=== PATIENT | male | born 1990 | race Caucasian/White ===

== ENCOUNTER 2022-01-09 13:56 | Emergency (ER) | payer SELFPAY ==
[~2022-01-09] VITALS: Ht 198.1 cm; Wt 97.7 kg
[2022-01-09 14:07] VITALS: BP 149/78; TEMP 98
[2022-01-09 15:16] VITALS: PULSE 90
== END 2022-01-09 15:16 | disposition home or self-care (01) ==
LOC: COL.ER 13:56
DX: S06.0X0A Concussion without loss of consciousness, initial encounter (principal); W13.4XXA Fall from, out of or through window, initial encounter